=== PATIENT | male | born 1950 | race Caucasian/White ===

== ENCOUNTER → 2018-03-25 | Outpatient (CLI) | payer MEDICARE, OTHER ==
[~2018-03-25] VITALS: Ht 162.6 cm; Wt 86.4 kg
[~2018-03-25] MED LIST: FERROUS SU325 MG/TAB PO; GLUCOSAMINE & C1 CA2 PO; LEVOTHYROXIN0.075 MG PO; LIPITOR20 M1 PO; LIPITOR20 M2 PO
[2018-03-25 08:38] LABS: EOS # 0.1 (0.04-0.40); HEMATOCRIT 42.6 % (42.0-52.0); HEMOGLOBIN 14.4 g/dL (13.5-18.0); LYMPH# 1.3 (1.50-4.00); MEAN CELL VOLUME 95 fl (78-100); MEAN CORPUSCULAR HEMOGLOBIN 32 pg (27-31); MEAN CORPUSCULAR HGB CONC 34 g/dL (33-37); MEAN PLATELET VOLUME 10.9 fl (7.4-10.4); MONO # 0.6 (0.20-0.80); NEU # 2.7 (1.40-6.50); PLATELET COUNT 229 K/mm3 (130-400); RED BLOOD COUNT 4.48 M/mm3 (4.20-5.60); RED CELL DISTRIBUTION WIDTH 13.9 % (11.5-14.5); WHITE BLOOD COUNT 4.7 K/mm3 (4.8-10.8)
[2018-03-25 08:46] VITALS: BP 104/62
[2018-03-25 09:02] LABS: ALBUMIN 4.3 g/dL (3.5-5.0); CALCIUM 8.9 mg/dL (8.4-10.2); POTASSIUM 4.1 mmol/L (3.6-5.0); TOTAL BILIRUBIN 0.9 mg/dL (0.2-1.3); TOTAL PROTEIN 7.5 g/dL (6.3-8.2)
[2018-03-25 09:16] LABS: PROTHROMBIN TIME 10.3 SECONDS (9.0-12.0)
[2018-03-25 09:22] LABS: URINE COLOR YELLOW
[2018-03-25 09:23] LABS: URINE APPEARANCE CLEAR; URINE BILIRUBIN NEGATIVE (NEGATIVE); URINE BLOOD NEGATIVE (NEGATIVE); URINE GLUCOSE NEGATIVE (NEGATIVE); URINE KETONE NEGATIVE (NEGATIVE); URINE LEUKOCYTE ESTERASE NEGATIVE (NEGATIVE); URINE NITRATE NEGATIVE (NEGATIVE); URINE PROTEIN(semi-quant) NEGATIVE (NEGATIVE); URINE UROBILINOGEN NORMAL (NORMAL); URINE WBC 0-1 /hpf (0-3)
[2018-03-25 09:54] LABS: ERYTHROCYTE SEDIMENTATION RATE 3 mm/hr (0-20)
== END ==
LOC: RAD 08:01
PROVIDERS: Internal Medicine
DX: Z01.818 Encounter for other preprocedural examination (principal); M17.0 Bilateral primary osteoarthritis of knee; Z12.5 Encounter for screening for malignant neoplasm of prostate; Z12.11 Encounter for screening for malignant neoplasm of colon; E78.5 Hyperlipidemia, unspecified; E03.9 Hypothyroidism, unspecified

== ENCOUNTER → 2018-04-01 | Outpatient (CLI) | payer MEDICARE, OTHER ==
[2018-03-25 08:46] VITALS: BP 104/62
== END ==
LOC: LAB 08:34
DX: Z12.11 Encounter for screening for malignant neoplasm of colon (principal)

== ENCOUNTER → 2018-05-08 | Outpatient (CLI) | payer MEDICARE, OTHER ==
[2018-03-25 08:46] VITALS: BP 104/62
== END ==
LOC: LAB 09:40
DX: R19.7 Diarrhea, unspecified (principal); R63.4 Abnormal weight loss

== ENCOUNTER → 2018-10-31 | Outpatient (CLI) | payer MEDICARE, OTHER ==
[2018-03-25 08:46] VITALS: BP 104/62
== END ==
LOC: RAD 09:15
DX: M19.041 Primary osteoarthritis, right hand (principal)

== ENCOUNTER → 2018-12-18 | Outpatient (CLI) | payer MEDICARE, OTHER ==
[2018-03-25 08:46] VITALS: BP 104/62
== END ==
LOC: LAB 08:27
DX: Z01.84 Encounter for antibody response examination (principal)

== ENCOUNTER → 2020-06-17 | Outpatient (CLI) | payer MEDICARE, OTHER ==
[2018-03-25 08:46] VITALS: BP 104/62
== END ==
LOC: RAD 12:23 → LAB 12:23 → RAD 17:00
PROVIDERS: Internal Medicine
DX: M48.061 Spinal stenosis, lumbar region without neurogenic claudication (principal); M47.26 Other spondylosis with radiculopathy, lumbar region; M43.16 Spondylolisthesis, lumbar region; M89.38 Hypertrophy of bone, other site; Z98.1 Arthrodesis status

== ENCOUNTER → 2022-09-26 | Outpatient (CLI) | payer MEDICARE | LOC: RAD 08:00 | DX: M43.16 Spondylolisthesis, lumbar region (principal); M47.816 Spondylosis without myelopathy or radiculopathy, lumbar region; M48.061 Spinal stenosis, lumbar region without neurogenic claudication; Z98.890 Other specified postprocedural states | CPT/HCPCS: A9575 ==

== ENCOUNTER → 2024-05-30 | Outpatient (CLI) | payer OTHER, MEDICARE ==
[~2024-05-30] MED LIST changes: +ALLEGRA ALLERGY60 MG PO; +FLONASE ALLERG9.9 ML NS
== END ==
LOC: RAD 12:33
DX: S43.52XA Sprain of left acromioclavicular joint, initial encounter (principal); S43.82XA Sprain of other specified parts of left shoulder girdle, initial encounter; X58.XXXA Exposure to other specified factors, initial encounter